=== PATIENT | male | born 1980 | race Caucasian/White ===

== ENCOUNTER 2018-02-05 09:48 | Outpatient (CLI) | payer OTHER | END 2018-02-05 09:49 | disposition home or self-care (01) | LOC: SC 09:48 | PROVIDERS: ATTEND Internal Medicine Pulmonary Disease | DX: G47.33 Obstructive sleep apnea (adult) (pediatric) (principal) | CPT/HCPCS: 99203; 99212 ==

== ENCOUNTER 2018-02-05 13:43 | Outpatient (CLI) | payer OTHER ==
[2018-02-05] MEDS ORDERED: ALBUTEROL NEB 2.5 MG/3 ML INH PRN (14:00)
[2018-02-05] MEDS ORDERED: ALBUTEROL NEB 2.5 MG/3 ML INH ONE (14:00)
== END 2018-02-05 13:44 | disposition home or self-care (01) ==
LOC: RT 13:43
PROVIDERS: ATTEND Anesthesiology Pain Medicine
DX: J98.4 Other disorders of lung (principal)
CPT/HCPCS: 94060; 94729

== ENCOUNTER 2018-02-06 08:51 | Outpatient (CLI) | payer OTHER | END 2018-02-06 08:52 | disposition home or self-care (01) | LOC: SC 08:51 | PROVIDERS: ATTEND Internal Medicine Pulmonary Disease | DX: G47.33 Obstructive sleep apnea (adult) (pediatric) (principal) | CPT/HCPCS: 95805 ==

== ENCOUNTER 2019-09-02 08:17 | Outpatient (CLI) | payer OTHER ==
--- NOTE | 2019-09-02 16:44 | MRI Report ---
Reason: LT SHOULDER PAIN Procedure Date: 09/02/2019 Accession Number: [id number] / [id number] Procedure: MRI - Shoulder LT W/O CPT Code: FULL RESULT: EXAM: LEFT SHOULDER MRI WITHOUT CONTRAST EXAM DATE: 09/02/2019 09:21 AM. CLINICAL HISTORY: Left shoulder pain. COMPARISON: None. TECHNIQUE: Multiplanar, multisequence T1-weighted and fluid-sensitive sequences of the shoulder without contrast. Other: None. FINDINGS: Acromioclavicular Region: The acromion is type II.Mild acromioclavicular joint osteoarthritis with inferiorly projecting osteophytes.The inferior margin of the clavicle abuts the superior margin of the coracoid process.No subacromial/subdeltoid bursal fluid. Glenohumeral Region: No subluxation.No effusion or loose bodies.The articular cartilage is unremarkable.There is edema of the inferior capsule suggestive of a prior partial thickness tear of the inferior glenohumeral ligament. Bone Marrow: See below. Labrum: There are a series of posterior inferior and inferior paralabral cysts, measuring up to 7 x 12 x 19 mm in aggregate dimensions. The inferior and posteroinferior labrum is from the underlying bony glenoid. There is flattening and concavity of the posteroinferior bony glenoid, suggestive of a prior posterior dislocation. The labral tear appears to involve the posteroinferior and posterosuperior quadrants. The superior labrum appears unremarkable. Musculature/Rotator Cuff: The subscapularis, supraspinatus, infraspinatus, and teres minor tendons are intact.No edema or fatty atrophy. Biceps Tendon: The long head of the biceps tendon and biceps lillian are intact. Other: The subcutaneous tissues are unremarkable. IMPRESSION: 1. Findings suggest of a posteroinferior and posterosuperior labral tear with posteroinferior labral cysts. 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 The findings are suggestive of a prior posterior dislocation. 2. Prior partial thickness tear of the inferior glenohumeral ligament. RADIA
== END 2019-09-02 08:18 | disposition home or self-care (01) ==
LOC: DI 08:17
PROVIDERS: ATTEND Physician Assistant
DX: M25.512 Pain in left shoulder (principal)

== ENCOUNTER 2019-12-08 17:47 | Emergency (ER) | payer OTHER ==
[2019-12-08] MEDS ORDERED: ceFAZolin 2 GM in SODIUM CHLORIDE 0.9% 100ML 100 ML IV STA (18:31)
[2019-12-08] MEDS ORDERED: HYDROmorphone 1 MG/ML CARPUJECT IVP STA (18:31)
[2019-12-08] MEDS ORDERED: ONDANSETRON 4 MG/2 ML VIAL IVP STA (18:32)
--- NOTE | 2019-12-08 18:45 | ED Physician Documentation ---
PD HPI UPPER EXT INJURY - Stated complaint Stated Complaint: LT THUMB LAC - Chief complaint Chief Complaint: Laceration - History obtained from History obtained from: Patient - History of Present Illness Location: Left, Finger Type of injury: Laceration Where injury occurred: Home Timing - onset: Today (Just prior to arrival) Contributing factors: No: Anticoagulated Similar symptoms before: Has not had sx before Recently seen: Not recently seen - Additonal information Additional information: This is a 39-year-old man presents with his complaints that he cut the tip of his left thumb off while prepping dinner tonight. This happened just prior to arrival. He can see the bone. Is uncertain when his last tetanus vaccine was. He is right-handed. Review of Systems Skin: reports: Other (Cut off the tip of the left thumb.) Musculoskeletal: reports: Extremity pain PD PAST MEDICAL HISTORY - Past Medical History Cardiovascular: None Respiratory: None Neuro: None Endocrine/Autoimmune: None GI: None : None HEENT: None Psych: None Musculoskeletal: None Derm: None - Past Surgical History Past Surgical History: Yes - Present Medications Home Medications: Ambulatory Orders Medication Instructions Recorded Confirmed Cephalexin [Keflex] 500 mg PO Q6H #12 capsule 12/08/19 Hydrocodone/Acetaminophen 1 - 2 each PO Q6H PRN #14 tablet 12/08/19 [Hydrocodon-Acetaminophen 5-325] Telmisartan/Hydrochlorothiazid 1 each PO DAILY 12/08/19 12/08/19 [Micardis Hct 40-12.5 mg Tablet] - Allergies Allergies/Adverse Reactions: Allergies Allergy/AdvReac Type Severity Reaction Status Date / Time No Known Drug Allergies Allergy Verified 12/08/19 17:57 - Social History Does the pt smoke?: Yes Smoking Status: Current every day smoker Does the pt drink ETOH?: Yes Does the pt have substance abuse?: No - Immunizations Immunizations are current?: No Immunizations: TDAP >10years/unknown - POLST Patient has POLST: No PD ED PE NORMAL - Vitals Vital signs reviewed: Yes - General General: Alert and oriented X 3, No acute distress, Well developed/nourished - HEENT HEENT: Atraumatic - Extremities Extremities: Other (The tip of the left thumb pad and a portion of the nail are missing. 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, Normal speech - Psych Psych: Normal mood, Normal affect Results - Vitals Vitals: Vital Signs - 24 hr 12/08/19 12/08/19 17:53 19:57 Temperature 36.8 C 36.4 C L Heart Rate 81 62 Respiratory 18 18 Rate Blood Pressure 143/96 H 132/86 H O2 Saturation 100 99 Oxygen O2 Source Room air - Labs Labs: Laboratory Tests 12/08/19 18:50 WBC 5.9 RBC 4.87 Hgb 14.4 Hct 43.1 MCV 88.5 MCH 29.6 MCHC 33.4 RDW 13.2 Plt Count 233 MPV 10.1 Neut # (Auto) 3.1 Lymph # (Auto) 2.0 [place] # (Auto) 0.6 Eos # (Auto) 0.1 Baso # (Auto) 0.1 Absolute Nucleated RBC 0.00 Nucleated RBC % 0.0 - Rads (name of study) L thumb Radiology: EMP read contemporaneously (no bone involvement) Procedures - Laceration (location) Finger left Distal Length in cm: 3 (oval shaped skin avulsion) Wound type: Into subcut fat, Clean, Other (Complete avulsion) Neurovascular status: Motor intact, Vascular intact Anesthesia: Lidocaine 2% (Left thumb digital nerve block but also local infiltration) Wound Preparation: Chlorhexadine, Irrigated copiously NS, Wound explored, To the base. No: FB identified, Wound edges modified Skin layer closure: Nylon, Interrupted, Size #-0 - enter number (5), Sutures - enter # (6) Other: Patient tolerated well, No complications, Dressing applied, Tetanus booster given, Other (The avulsed piece of skin was available they had brought again in a paper towel on ice. It was removed and cleansed and sterile saline. The small sliver of nail that was still attached was removed. The avulsed piece was then sutured in place over the open wound. There was no bone palpable at the base of that wound. Patient tolerated this well.) Complexity: Simple PD MEDICAL DECISION MAKING - ED course Complexity details: reviewed results ED course: Patient had an IV started and was given 2 g of Ancef IV as well as Dilaudid and Zofran. Repair was performed And the thumb was placed in a tube gauze dressing. He is instructed on wound care. He will be placed on Keflex for 5 days and given a prescription for hydrocodone. He should contact Ortho's office tomorrow for follow-up in 2 to 3 days to evaluate the reimplanted tip. We did discuss the fact that this may not take but at least will provide a biological dressing. Departure - Departure Disposition: 01 Home, Self Care Clinical Impression: Laceration Avulsion of skin of finger Qualifiers: Encounter type: initial encounter Qualified Code(s): S61.209A - Unspecified open wound of unspecified finger without damage to nail, initial encounter Condition: Good Instructions: ED Laceration Hand Follow-Up: Dexter Bhatt MD [Provider Admit Priv/Credential] - Prescriptions: Cephalexin [Keflex] 500 mg PO Q6H #12 capsule Hydrocodone/Acetaminophen [Hydrocodon-Acetaminophen 5-325] 1 - 2 each PO Q6H PRN #14 tablet PRN Reason: pain Comments: Leave our dressing on and keep it clean and dry until you follow-up with orthopedist in 48 to 72 [address] You should call Dr. Bhatt's office in the morning to arrange a follow-up appointment. Start the antibiotic tonight before you go to bed. You will take it 4 times a day for 5 days. You have a prescription for hydrocodone if needed for the pain but do not drive or operate machinery or take additional Tylenol with that. Return for dressing change if this bleeds through on the bandage greater than the size of a quarter. Discharge Date/Time: 12/08/19 19:59
[2019-12-08] MEDS ORDERED: LIDOCAINE 2% 10 ML MDV SUBQ STA (18:46)
[2019-12-08] MEDS ORDERED: TETANUS/DIPHTHERIA/PERTUSSIS 0.5 ML SYRINGE IM ONE (18:55)
[2019-12-08 19:09] LABS: BASOPHILS # (AUTO) 0.1 10^3/uL (0.0-0.1); BASOPHILS % (AUTO) 0.9 %; EOSINOPHILS # (AUTO) 0.1 10^3/uL (0.0-0.7); HGB - HEMOGLOBIN 14.4 g/dL (14.0-18.0); LYMPHOCYTES % (AUTO) 34.7 %; MEAN CORPUSCULAR HEMOGLOBIN 29.6 pg (27.0-31.0); MEAN CORPUSCULAR HGB CONC 33.4 g/dL (32.0-36.0); MEAN CORPUSCULAR VOLUME 88.5 fL (80.0-94.0); MEAN PLATELET VOLUME 10.1 fL (7.4-11.4); MONOCYTES # (AUTO) 0.6 10^3/uL (0.0-1.0); MONOCYTES % (AUTO) 9.5 %; NEUTROPHILS # (AUTO) 3.1 10^3/uL (1.5-6.6); NEUTROPHILS % (AUTO) 52.4 %; PLT - PLATELET COUNT 233 10^3/uL (130-450); RED BLOOD COUNT 4.87 10^6/uL (4.70-6.10); RED CELL DISTRIBUTION WIDTH 13.2 % (12.0-15.0); WHITE BLOOD COUNT 5.9 x10^3/uL (4.8-10.8)
[2019-12-08] MEDS ORDERED: LIDOCAINE 2% 10 ML MDV ONE (19:11)
[2019-12-08] MEDS ORDERED: HYDROcod/ACET 5/325 Prepack 4 PO STA (19:42)
[2019-12-08] MEDS ORDERED: CEPHALEXIN 250 MG Prepack 8 CAP BOTTLE PO STA (19:42)
[2019-12-08 19:57] VITALS: BP 132/86
--- NOTE | 2019-12-08 20:03 | XRAY Report ---
Reason: pain Procedure Date: 12/08/2019 Accession Number: [id number] / [id number] Procedure: XR - Finger(s) LT CPT Code: Final Report FULL RESULT: EXAM: LEFT FIRST DIGIT RADIOGRAPHY EXAM DATE: 12/08/2019 07:39 PM. CLINICAL HISTORY: Pain. Distal soft tissue amputation. COMPARISON: None. TECHNIQUE: 3 views. FINDINGS: Bones: Normal. No fracture or bone lesion. Joints: Normal. No subluxations. Soft Tissues: Obscured by bandaging. IMPRESSION: No bony abnormality. RADIA
== END 2019-12-08 19:59 | disposition home or self-care (01) ==
LOC: ED 17:47
DX: S61.112A Laceration without foreign body of left thumb with damage to nail, initial encounter (principal); W26.0XXA Contact with knife, initial encounter; Y93.G3 Activity, cooking and baking; Y92.009 Unspecified place in unspecified non-institutional (private) residence as the place of occurrence of the external cause; Z23 Encounter for immunization; F17.200 Nicotine dependence, unspecified, uncomplicated
CPT/HCPCS: 12002; 36415; 73140; 85025; 90471; 90715; 96365; 96375; 99284; J1170

== ENCOUNTER 2019-12-29 11:42 | Outpatient (CLI) | payer OTHER ==
--- NOTE | 2019-12-29 15:34 | MRI Report ---
Reason: LT KNEE PAIN Procedure Date: 12/29/2019 Accession Number: [id number] / [id number] Procedure: MRI - Knee LT W/O CPT Code: Final Report FULL RESULT: EXAM: LEFT KNEE MRI WITHOUT CONTRAST EXAM DATE: 12/29/2019 01:02 PM. CLINICAL HISTORY: Chronic posterior and anterior knee pain, worse with kneeling. COMPARISON: None. TECHNIQUE: Multiplanar, multisequence T1-weighted and fluid-sensitive sequences of the knee without contrast. Other: None. FINDINGS: Ligaments: The anterior cruciate, posterior cruciate, medial collateral, and lateral collateral ligaments are normal. Patellofemoral compartment: Minimal partial thickness central and lateral retropatellar chondromalacia and minimal partial thickness femoral trochlear chondromalacia. No patellofemoral osteoarthritis. Patellofemoral alignment is anatomic. The distal quadriceps and patellar tendons are normal. The medial and lateral patellofemoral retinacula are normal. Medial compartment: The medial meniscus is intact. Mild diffuse partial thickness chondromalacia of the weightbearing surface of the medial femoral condyle. Medial tibial plateau cartilage is preserved. Minuscule medial compartment osteophytes indicate minimal osteoarthritis. Lateral compartment: The lateral meniscus is intact. Lateral compartment cartilage is preserved. No lateral compartment osteoarthritis. Soft tissues: No significant knee effusion. There is a small popliteal cyst. There is further fluid along the posterolateral aspect of the distal femoral metaphysis wrapping around the proximal and medial margins of the lateral head of the gastrocnemius. This appears external to the gastrocnemius muscle and does not appear to reflect gastrocnemius strain or tear as there is no intrinsic signal abnormality within the gastrocnemius muscle fibers. This is more likely leakage of knee joint fluid through a small defect in the posterolateral capsule. Though the site of the presumed capsular defect is not definitely seen, and most likely resides in the posterior aspect of the intercondylar notch. IMPRESSION: 1. Minimal superficial partial thickness chondromalacia patella without osteoarthritis. The patellofemoral compartment is otherwise normal. 2. Mild diffuse partial thickness chondromalacia of the weightbearing surface of the medial femoral condyle with extremely minimal medial compartment ostearthritis. Intact medial meniscus. 3. Normal lateral compartment. 4. Fluid in the soft tissues along the posterolateral aspect of the distal femur probably reflects leakage of joint fluid through a small defect in the posterior joint capsule, likely residing at the intercondylar notch. Though this fluid is in close approximation to the lateral head of the gastrocnemius, the lateral head gastrocnemius muscle fibers are normal in signal and this is probably not reflective of lateral head gastrocnemius injury. RADIA
== END 2019-12-29 11:43 | disposition home or self-care (01) ==
LOC: DI 11:42
PROVIDERS: ATTEND Physician Assistant
DX: M94.262 Chondromalacia, left knee (principal); M25.462 Effusion, left knee

== ENCOUNTER 2023-05-14 10:37 | Emergency (ER) | payer OTHER ==
[2023-05-14 11:02] LABS: BASOPHILS % (AUTO) 0.5 %; EOSINOPHILS % (AUTO) 0.3 %; HCT - HEMATOCRIT 43.9 % (42.0-52.0); HGB - HEMOGLOBIN 15.1 g/dL (14.0-18.0); LYMPHOCYTES % (AUTO) 13.1 %; MEAN CORPUSCULAR HGB CONC 34.4 g/dL (32.0-36.0); MEAN CORPUSCULAR VOLUME 87.1 fL (80.0-94.0); MEAN PLATELET VOLUME 10.1 fL (7.4-11.4); MONOCYTES # (AUTO) 0.4 10^3/uL (0.0-1.0); MONOCYTES % (AUTO) 5.4 %; NEUTROPHILS # (AUTO) 6.1 10^3/uL (1.5-6.6); NEUTROPHILS % (AUTO) 80.4 %; PLT - PLATELET COUNT 204 10^3/uL (130-450); RED BLOOD COUNT 5.04 10^6/uL (4.70-6.10); RED CELL DISTRIBUTION WIDTH 11.9 % (12.0-15.0); WHITE BLOOD COUNT 7.6 x10^3/uL (4.8-10.8)
--- NOTE | 2023-05-14 11:15 | XRAY Report ---
PROCEDURE: Chest 1 View X-Ray INDICATIONS: Chest Pain TECHNIQUE: One view of the chest was acquired. COMPARISON: None. FINDINGS: Surgical changes and devices: None. Lungs and pleura: No pleural effusions or pneumothorax. Lungs are clear. Mediastinum: Mediastinal contours appear normal. Heart size is normal. Bones and chest wall: No suspicious bony lesions. Overlying soft tissues appear unremarkable. IMPRESSION: No acute cardiopulmonary process. Reviewed by: David Sifuentes on 05/14/2023 11:13 AM PDT Approved by: David Sifuentes on 05/14/2023 11:13 AM PDT Station ID: [id number]
[2023-05-14 11:32] LABS: ALBUMIN 4.5 g/dL (3.2-5.5); ALBUMIN/GLOBULIN RATIO 1.7 (1.0-2.2); BILIRUBIN,TOTAL 0.8 mg/dL (0.2-1.0); CALCIUM 9.3 mg/dL (8.5-10.3); CREATININE 0.8 mg/dL (0.6-1.2); POTASSIUM 3.6 mmol/L (3.5-5.0); TOTAL PROTEIN 7.1 g/dL (6.7-8.2)
--- NOTE | 2023-05-14 13:02 | ED Physician Documentation ---
PD HPI CHEST PAIN - Stated complaint Stated Complaint: CHEST PX/TIGHT - Chief complaint Chief Complaint: Cardiac - History obtained from History obtained from: Patient - Additional information Additional information: The patient comes to the emergency department chief complaint of chest pain episodes. He states that he has mostly been having this over the last few days although he feels in general, that his tolerance of physical exertion has gradually diminished over the last 6 months or so. He denies any exertional chest pain. He states that he is not really sure what brings the episodes of c hest pain on that he has been having at home. He states that sort of a burning sensation in his lower to mid substernal area that sometimes radiates through to his back. He has chronic left shoulder pain from various orthopedic injuries and states that he does not notice an increase in that when he gets the chest pain. He states that since the chest pain starts to come on, he begins to have a panic attack and starts feeling short of breath, tingly, and lightheaded. He has a longstanding history of anxiety and states that he begins to worry about all the bad things that could go wrong with his health when he gets the chest pain. He is not really sure how long the episodes last. Sometimes, he has the discomfort all day, but states he just ignores it and tries to take his mind off of it is much as possible. He denies any exertional chest pain, and states that physical activity really does not seem to affect his symptoms at all. The patient has a history of hypertension and has been off his meds for a bit for this. He is supposed to be taking Micardis with HCTZ but has not taken it for some months. He also states that he has been vaping for approximately 15 years after smoking for about 15 years before that. He denies any family history of coronary artery disease or NC. The patient states he has some vague discomfort in his chest right now but that is really not bothering him much. PD PAST MEDICAL HISTORY - Past Medical History Past Medical History: Yes Cardiovascular: Hypertension Respiratory: Asthma Neuro: Head injury Endocrine/Autoimmune: None GI: None : None HEENT: None Psych: None Musculoskeletal: None Derm: None - Past Surgical History Past Surgical History: Yes Ortho: Other - Present Medications Home Medications: Ambulatory Orders Medication Instructions Recorded Confirmed No Known Home Medications 05/14/23 05/14/23 - Allergies Allergies/Adverse Reactions: Allergies Allergy/AdvReac Type Severity Reaction Status Date / Time No Known Drug Allergies Allergy Verified 05/14/23 10:48 - Social History Does the pt smoke?: No Smoking Status: Current some day smoker Does the pt drink ETOH?: Yes ETOH Use: Wine, Beer Does the pt have substance abuse?: Yes Substance Use and Type: CBD oil / Products - Immunizations Immunizations are current?: No Immunizations: TDAP >10years/unknown - POLST Patient has POLST: No PD ED PE NORMAL - Vitals Vital signs reviewed: Yes - General General: Alert and oriented X 3, No acute distress, Well developed/nourished - HEENT HEENT: Atraumatic, PERRL, EOMI, Moist mucous membranes - Neck Neck: Supple, no meningeal sign - Cardiac Cardiac: RRR, No murmur, Strong equal pulses - Respiratory Respiratory: No respiratory distress, Clear bilaterally - Abdomen Abdomen: Soft, Non tender, Non distended - Derm Derm: Normal color, Warm and dry, No rash - Extremities Extremities: No deformity, No edema - Neuro Neuro: Alert and oriented X 3, 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 Relevant findings are: Rate: Rate (enter#) (76) Rhythm: NSR Horatio: Normal Intervals: Normal [place] QRS: Normal Ischemia: Normal ST segments Compare to prior EKG: Unchanged from prior EKG Computer interpretation: Agree with computer - Labs Labs: Laboratory Tests 05/14/23 05/14/23 05/14/23 10:57 11:15 11:15 WBC 7.6 RBC 5.04 Hgb 15.1 Hct 43.9 MCV 87.1 MCH 30.0 MCHC 34.4 RDW 11.9 L Plt Count 204 MPV 10.1 Neut # (Auto) 6.1 Lymph # (Auto) 1.0 L [place] # (Auto) 0.4 Eos # (Auto) 0.0 Baso # (Auto) 0.0 Absolute Nucleated RBC 0.00 Nucleated RBC % 0.0 Sodium 137 Potassium 3.6 Chloride 102 Carbon Dioxide 27 Anion Gap 8.0 BUN 13 Creatinine 0.8 Estimated GFR (MDRD) 105 Glucose 145 H Calcium 9.3 Total Bilirubin 0.8 AST 18 ALT 21 Alkaline Phosphatase 54 Troponin I High Sens < 2.3 L Total Protein 7.1 Albumin 4.5 Globulin 2.6 Albumin/Globulin Ratio 1.7 Lipase 28 05/14/23 12:59 WBC RBC Hgb Hct MCV MCH MCHC RDW Plt Count MPV Neut # (Auto) Lymph # (Auto) Cedar # (Auto) Eos # (Auto) Baso # (Auto) Absolute Nucleated RBC Nucleated RBC % Sodium Potassium Chloride Carbon Dioxide Anion Gap BUN Creatinine Estimated GFR (MDRD) Glucose Calcium Total Bilirubin AST ALT Alkaline Phosphatase Troponin I High Sens < 2.3 L Total Protein Albumin Globulin Albumin/Globulin Ratio Lipase - Rads (name of study) CXR Relevant Findings:: Final report received, See rad report (neg) PD Medical Decision Making - ED course Complexity details: reviewed results, re-evaluated patient, considered differential, d/w patient ED course: The pt was worked up in the ED with CBC, ER abd panel, and serial troponins, as well as EKG and CXR, all of which were unremarkable. The pt was feeling fairly well in the ED, and I d/w him that it is very important that he follows up with his PCP for stress test. We have discussed that the pt should have a low threshold for return to the ED, should he have worsening CP, especially with SOB, nausea and/or diaphoresis. Departure - Departure Disposition: 01 Home, Self Care Clinical Impression: Atypical chest pain, Anxiety Condition: Stable Instructions: ED Chest Pain Atypical Unkn Cause, ED Heart Disease Risk Factors Comments: Your EKG is normal today, as are your laboratory studies. There is no evidence of a heart attack either today or in recent days, and no evidence of any other emergent cause of chest pain. There are many causes potentially for chest pain, and some are emergent and others are not. However, given your symptoms, it is important that you follow-up in clinic as soon as possible to get scheduled for a follow-up cardiac stress test And to get back on a blood pressure control regimen. While you do not have all the risk factors for coronary artery disease, you do not have 0 risk factors and so it is important to optimize your lifestyle and health factors to put yourself in the best possible position as far as your cardiovascular health and otherwise. Please call today to make a follow-up appointment with your primary doctor. If you begin to have severe chest pain, shortness of breath, nausea, or any other symptoms that same that they are worse, please return to the emergency department immediately. Discharge Date/Time: 05/14/23 14:07
[2023-05-14 14:09] VITALS: BP 140/88
== END 2023-05-14 14:07 | disposition home or self-care (01) ==
LOC: ED 10:37
DX: R07.89 Other chest pain (principal); F41.9 Anxiety disorder, unspecified; I10 Essential (primary) hypertension; T50.2X6A Underdosing of carbonic-anhydrase inhibitors, benzothiadiazides and other diuretics, initial encounter; F17.290 Nicotine dependence, other tobacco product, uncomplicated
CPT/HCPCS: 36415; 80053; 83690; 84484; 85025; 93005; 99283; 99284

== ENCOUNTER 2023-06-17 03:48 | Outpatient (CLI) | payer OTHER | END 2023-06-17 23:59 | disposition critical access hospital (66) | LOC: EMS 03:48 | DX: R00.0 Tachycardia, unspecified (principal); R61 Generalized hyperhidrosis | CPT/HCPCS: A0425; A0427 ==

== ENCOUNTER 2023-06-17 04:10 | Emergency (ER) | payer OTHER ==
[2023-06-17 04:36] LABS: BASOPHILS % (AUTO) 0.6 %; EOSINOPHILS # (AUTO) 0.1 10^3/uL (0.0-0.7); EOSINOPHILS % (AUTO) 2.5 %; HCT - HEMATOCRIT 39.3 % (42.0-52.0); HGB - HEMOGLOBIN 13.8 g/dL (14.0-18.0); LYMPHOCYTES # (AUTO) 1.4 10^3/uL (1.5-3.5); LYMPHOCYTES % (AUTO) 29.8 %; MEAN CORPUSCULAR HEMOGLOBIN 30.7 pg (27.0-31.0); MEAN CORPUSCULAR HGB CONC 35.1 g/dL (32.0-36.0); MEAN CORPUSCULAR VOLUME 87.5 fL (80.0-94.0); MEAN PLATELET VOLUME 9.7 fL (7.4-11.4); MONOCYTES # (AUTO) 0.5 10^3/uL (0.0-1.0); MONOCYTES % (AUTO) 9.4 %; NEUTROPHILS # (AUTO) 2.8 10^3/uL (1.5-6.6); NEUTROPHILS % (AUTO) 57.5 %; PLT - PLATELET COUNT 159 10^3/uL (130-450); RED BLOOD COUNT 4.49 10^6/uL (4.70-6.10); RED CELL DISTRIBUTION WIDTH 11.9 % (12.0-15.0); WHITE BLOOD COUNT 4.8 x10^3/uL (4.8-10.8)
[2023-06-17 04:54] LABS: ALBUMIN 4.2 g/dL (3.2-5.5); ALBUMIN/GLOBULIN RATIO 2.3 (1.0-2.2); BILIRUBIN,TOTAL 0.5 mg/dL (0.2-1.0); CALCIUM 8.8 mg/dL (8.5-10.3); CREATININE 0.8 mg/dL (0.6-1.3); POTASSIUM 3.6 mmol/L (3.5-4.5)
[2023-06-17 05:06] LABS: THYROID STIMULATING HORMONE 2.47 uIU/mL (0.34-5.60)
[2023-06-17 05:08] LABS: TROPONIN I HIGH SENSITIVITY 3.3 ng/L (2.3-19.7)
--- NOTE | 2023-06-17 05:14 | ED Physician Documentation ---
History of Present Illness - Stated complaint Stated Complaint: RAPID HR - Chief complaint Chief Complaint: Cardiac - History obtained from History obtained from: Patient - Additonal information Additional information: 43-year-old male with history of anxiety, hypertension presents by EMS from home for fast heart rate. Patient states that he woke up in the middle the night when his got up to use the restroom. He states that he thought he heard his son crying so went to go check on him. Right before he went to lay back down to sleep he noticed that his heart was pounding and states that his watch told him his heart rate was as high as 140 bpm. He attempted to calm his heart rate but it did not seem to get any better and so he called 911. Patient was seen here 1 month prior for chest pains. He was discharged home after negative work-up and counseled to see cardiology for possible stress test. He states that he was not able to follow-up with cardiology just yet as he has not had time to schedule. Patient denies any chest pain, shortness of breath, any other complaints at this time. By the time EMS arrived to his house his heart rate had dropped back down to 80 to 90 bpm Review of Systems Constitutional: denies: Fever, Chills Eyes: denies: Loss of vision Ears: denies: Loss of hearing Throat: denies: Dental pain / toothache, Sore throat Cardiac: reports: Palpitations. denies: Chest pain / pressure, Pedal edema Respiratory: denies: Dyspnea, Cough, Wheezing GI: denies: Abdominal Pain, Nausea, Vomiting, Constipation, Diarrhea Neurologic: denies: Generalized weakness, Focal weakness, Numbness Psychiatric: denies: Depressed, Anxiety PD PAST MEDICAL HISTORY - Past Medical History Past Medical History: Yes Cardiovascular: Hypertension Respiratory: Asthma Neuro: Head injury Endocrine/Autoimmune: None GI: None : None HEENT: None Psych: None Musculoskeletal: None Derm: None - Past Surgical History Past Surgical History: Yes Ortho: Other - Present Medications Home Medications: Ambulatory Orders Medication Instructions Recorded Confirmed Loratadine [Claritin] 10 mg PO DAILY PRN 06/17/23 06/17/23 Telmisartan/Hydrochlorothiazid 1 tab PO DAILY 06/17/23 06/17/23 [Micardis Hct 40-12.5 mg Tablet] hydroCHLOROthiazide [Hydrodiuril] 12.5 mg PO DAILY 06/17/23 06/17/23 - Allergies Allergies/Adverse Reactions: Allergies Allergy/AdvReac Type Severity Reaction Status Date / Time No Known Drug Allergies Allergy Verified 05/14/23 10:48 - Social History Does the pt smoke?: No Smoking Status: Never smoker Does the pt drink ETOH?: Yes ETOH Use: Wine, Liquor Does the pt have substance abuse?: Yes - Immunizations Immunizations are current?: No Immunizations: TDAP >10years/unknown - POLST Patient has POLST: No PD ED PE NORMAL - Vitals Vital signs reviewed: Yes - General General: Alert and oriented X 3, No acute distress, Well developed/nourished - HEENT HEENT: Atraumatic - Neck Neck: Supple, no meningeal sign - Cardiac Cardiac: RRR, No murmur, Strong equal pulses - Abdomen Abdomen: Soft, Non tender, Non distended - Derm Derm: Normal color, Warm and dry, No rash - Extremities Extremities: No deformity, No edema - Neuro Neuro: Alert and oriented X 3, media relations specialist 2-12 intact, No motor deficit, Normal speech - Psych Psych: Normal mood, Normal affect Results - Vitals Vitals: Vital Signs - 24 hr 06/17/23 06/17/23 06/17/23 04:10 04:15 05:25 Temperature 36.5 C 37.0 C Heart Rate 88 86 69 Respiratory 15 24 18 Rate Blood Pressure 134/90 H 124/80 121/79 O2 Saturation 99 97 100 Oxygen O2 Source Room air - EKG (time done) 0415 EKG releavant findings:: EKG personally interpreted by author of this note. Relevant findings are: Rate: Rate (enter#) (79) Rhythm: NSR Ranger: Normal Intervals: Normal SD QRS: Normal Ischemia: Normal ST segments - Labs Labs: Laboratory Tests 06/17/23 06/17/23 06/17/23 04:31 04:31 04:31 WBC 4.8 RBC 4.49 L Hgb 13.8 L Hct 39.3 L MCV 87.5 MCH 30.7 MCHC 35.1 RDW 11.9 L Plt Count 159 MPV 9.7 Neut # (Auto) 2.8 Lymph # (Auto) 1.4 L Vance # (Auto) 0.5 Eos # (Auto) 0.1 Baso # (Auto) 0.0 Absolute Nucleated RBC 0.00 Nucleated RBC % 0.0 Sodium 136 Potassium 3.6 Chloride 107 Carbon Dioxide 27 Anion Gap 2.0 L BUN 16 Creatinine 0.8 Estimated GFR (MDRD) 105 Glucose 95 Calcium 8.8 Total Bilirubin 0.5 AST 15 ALT 15 Alkaline Phosphatase 54 Troponin I High Sens 3.3 Total Protein 6.0 L Albumin 4.2 Globulin 1.8 L Albumin/Globulin Ratio 2.3 H TSH 2.47 PD Medical Decision Making - ED course Complexity details: reviewed results, re-evaluated patient, considered differential, d/w patient ED course: Well-appearing patient with isolated episode of fast heart rate. Patient's heart rate is 80 bpm, he denies any chest pain or shortness of breath with his episode of fast heart rate. PERC negative. EKG is sinus rhythm without any concerning findings. Will check labs, TSH, troponin, if normal will discharge home with repeat advice to follow-up with cardiology. Laboratory work is unremarkable, TSH within normal limits. Troponin is negative. Patient has remained asymptomatic while in the emergency department, no unusual activity noted on monitoring specialist. Patient informed of results and counseled to follow-up with cardiology. Departure - Departure Disposition: 01 Home, Self Care Clinical Impression: Palpitations Condition: Stable Instructions: ED Palpitations Comments: I RECOMMEND FOLLOW UP WITH CARDIOLOGY. TODAY YOUR HEART, LUNGS, THYROID ALL APPEAR NORMAL ON LAB WORK. Forms: PCP List Discharge Date/Time: 06/17/23 05:30
[2023-06-17 05:40] VITALS: BP 121/79
--- NOTE | 2023-06-17 07:39 | XRAY Report ---
PROCEDURE: Chest 1 View X-Ray INDICATIONS: PALPITATIONS TECHNIQUE: One view of the chest was acquired. COMPARISON: None. FINDINGS: Surgical changes and devices: None. Lungs and pleura: No pleural effusions or pneumothorax. Lungs are clear. Mediastinum: Mediastinal contours appear normal. Heart size is normal. Bones and chest wall: No suspicious bony lesions. Overlying soft tissues appear unremarkable. IMPRESSION: No acute cardiopulmonary process. Findings are concordant with preliminary interpretation provided by [facility]. Reviewed by: Irvin Rodgers MD on 06/17/2023 7:38 AM PDT Approved by: Irvin Rodgers MD on 06/17/2023 7:38 AM PDT Station ID: [id number]
== END 2023-06-17 05:30 | disposition home or self-care (01) ==
LOC: EDUNIT# → ED 04:10
DX: R00.2 Palpitations (principal)
CPT/HCPCS: 36415; 80053; 84443; 84484; 85025; 93005; 99282; 99284

== ENCOUNTER 2023-08-31 08:42 | Outpatient (CLI) | payer OTHER ==
--- NOTE | 2023-08-31 09:44 | Sleep Patient Instructions ---
Sleep Center Visit Summary - Patient Visit Information Reason for Visit: Initial consultation - Patient Instructions Additional Instructions: You will continue with CPAP therapy with pressure set at 9-10 cmH2O. A supply prescription will be updated with your DME. I have added an update of your CPAP which we will send off to [facility] once we have a copy of sleep study. We encourage you to maintain a healthy weight. Please follow up with the sleep care office one month after obtaining new device. - Clinic Information Contact: [facility] [address] [place] [address] [email or web address] T: [phone]
--- NOTE | 2023-08-31 09:47 | SLEEP CARE CONSULTATION ---
Information from patient questionnaire entered by Arnel Avila. I have reviewed and concur with the information entered by Arnel Avila. This document represents the service I personally performed and the decisions made by me, Gin Vela ARNP. History of Present Illness Service Date and Time: 08/31/2023 0842 Reason for Visit: New patient, sleep apnea on CPAP therapy, Re-establish care Chief Complaint: reports: Other (update supplies) Date of Onset: diagnosed in 2016 Usual bedtime: 10pm Time it takes to fall asleep: quickly Snores at night: Yes Observed to quit breathing while asleep: Yes Sleeps alone due to snoring: Yes Number of times waking at night: 1 Reasons for waking at night: reports: Bathroom, Other (unknown). denies: Choking, Gasping for air Toss, Turn, or Twitch while sleeping: Yes Recalls having dreams: Yes Usually gets out of bed at: 530-6AM Feels refreshed in the morning: No Morning headache: No Sleepy or fatigued during the day: Yes Ever fallen asleep while driving: No Takes day naps: No Dreams during day naps: No Prior sleep studies: Yes Additional HPI information: FITO ARREOLA was previously diagnosed to have severe, AHI 36.7, obstructive sleep apnea-hypopnea syndrome and comes in today to re-establish care for CPAP therapy. He was last seen here in 01/2018. He was previously diagnosed at [facility] in 2017 with severe obstructive sleep apnea. His CPAP is making loud noises for last year and he is unable to use it. - Parasomnia Symptoms Ever been unable to move upon waking from sleep: No Walks in sleep: No Talks in sleep: Yes Ever acted out dreams in sleep: No Ever felt weak in the knees when startled or emotional: No Bothered by creepy, crawly, restless sensations in legs: No Problems with memory or concentration: Yes CPAP Compliance Data - Data Reviewed with Patient Current pressure setting (cmH2O): 9-10 Compliance data discussion: He has a [employer]Med Airsense 10 that was last set up in 10/2017. It is making a loud noise when he tries to use it at night and he is unable to sleep. He has been getting supplies from [employer]. He is using a full face mask. Subjective Missed days of use due to: reports: other (machine broken) Patient concerns: reports: dry mouth, nose, throat. denies: aerophagia, mask discomfort, air blowing in eyes, mask leak noise, condensation in mask/hose, nasal congestion, epistaxis Observed to snore while using device: No Current pressure setting perceived as: comfortable On therapy, patient: reports: sleeping better, awakening more refreshed, being more awake and alert during the day, more rested overall. denies: drowsiness while driving Initial [place] Sleepiness Scale score: 7 (08/14/23.) Past Medical History Past Medical History: reports: Hypertension, Anxiety, Asthma Social History The patient's occupation is a [employer]. Patient is and lives in [place]. Have you smoked in the past 12 months: No Cigarettes per day (20/pack): 20 Years of smokin Quit date: 2009 Smoking Pack Years: 10.0 Alcohol use: Yes Alcohol amount and frequency: 3 DAILY Caffeine use: Yes Caffeine amount and frequency: 1 DAILY Family History Family history of sleep disordered breathing: Yes Family Hx Sleep Apnea: Grandparent: Snoring Allergies and Home Medications Known drug allergies: No Drug allergies reviewed: Yes Home medication list reviewed: Yes Allergy and home medication list: Allergies Had cough with Lisinopril Home Medications Medication Instructions Recorded Confirmed Last Taken Type Telmisartan/Hydrochlorothiazid 1 tab PO DAILY 06/17/23 08/31/23 06/16/23 History [Micardis Hct 40-12.5 mg Tablet] hydroCHLOROthiazide [Hydrodiuril] 12.5 mg PO DAILY 06/17/23 08/31/23 06/16/23 History Doxycycline [Vibramycin] See Rx Instructions .ROUTE .COMPLEX 08/31/23 08/31/23 Unknown History Omeprazole See Rx Instructions .ROUTE .COMPLEX 08/31/23 08/31/23 Unknown History Omeprazole Magnesium See Rx Instructions .ROUTE .COMPLEX 08/31/23 08/31/23 Unknown History Review of Systems Weight loss over past 5 years: 50 Cardiovascular: reports: high blood pressure, chest pain Respiratory: reports: shortness of breath Gastrointestinal: denies: heartburn Neurological: reports: head trauma Psychiatric: denies: anxiety, depression Ear/Nose/Throat: reports: nasal congestion Musculoskeletal: reports: joint pain, back pain Immunologic: reports: sneezing Physical Exam Vital signs obtained and entered by: ARNEL Valera MA Blood Pressure: 124/76 (LEFT ARM) Cuff size: regular Heart Rate: 78 O2 Saturation: 98 Height: 6 ft 4 in Weight: 207 lb (with clothes/shoes) Body Mass Index: 25.2 BMI Classification: Overweight Neck circumference: 17 Heart: regular rate and rhythm Lungs: clear bilaterally Impression and Plan 1. Obstructive Sleep Apnea-Hypopnea Syndrome, severe. On CPAP therapy, the patient has better sleep quality and is more rested overall. We have requested a copy of his sleep study, if unable to get his study will have to order new one. He has had a 50 pound loss in last 5 years. He has not been able to use his C PAP because it is making a very loud noise. He is eligible for a new device. The patients CPAP is over 5 years old and of reasonable use. In addition, it is starting to make louder noise, a sign of malfunction. Thus, the CPAP will be updated. The new CPAPs also have a better humidity system which could assist control of patients dryness symptoms. A DWO prescription will be made. Compliance guidelines for new device and follow up discussed. Patient's apnea severity and rationale for treatment to reduce apnea, improve sleep quality and reduce cardiovascular and cerebrovascular events was reviewed. I also reviewed the benefit of consistent device use of CPAP for hypertension. 2. Overweight, unspecified. Currently patients BMI is 25.2. Obesity increases the risk of apnea, CPAP pressure requirements and overall health risks especially cardiovascular and diabetes. Thus patient is advised to continue to try to lose weight. * Continue auto CPAP pressure at 8-9 cmH2O * Update machine once we have copy of sleep study * Update supply prescription * Notify me if snoring with mask or feeling that the pressure is too much or too little * Attempt to lose weight * Call this office if any problems using CPAP * Return for follow up one month after obtaining new device, or sooner if concerns arise Counseling Topics: Weight loss health impact Prescriptions: Auto CPAP, Device supplies Plan: PSG if unable to get copy of last sleep study Visit Type: In Office Time Spent with Patient (minutes): 33 Provider Statement: I spent 100% of the Face to Face Visit with the patient with greater than 50% spent counseling the patient and coordination of care.
[2023-08-31 09:50] VITALS: BP 124/76; O2SAT 98
== END 2023-08-31 08:43 | disposition home or self-care (01) ==
LOC: SC 08:42
PROVIDERS: ATTEND Nurse Practitioner Family
DX: G47.33 Obstructive sleep apnea (adult) (pediatric) (principal); E66.3 Overweight; Z68.25 Body mass index [BMI] 25.0-25.9, adult
CPT/HCPCS: 99203; 99212